=== PATIENT | male | born 1945 | race Caucasian/White ===

== ENCOUNTER 2019-08-16 16:32 | Emergency (ER) | payer MEDICARE, OTHER ==
[2019-08-18 15:28] LABS: SARS-CoV-2 MS2 Positive; SARS-CoV-2 N Gene Positive; SARS-CoV-2 S Gene Positive; SARS-CoV-2 orf1ab Positive
== END 2019-08-16 17:10 | disposition home or self-care (01) ==
LOC: NAV ERS 16:32
DX: U07.1 COVID-19 (principal); E11.9 Type 2 diabetes mellitus without complications; J45.909 Unspecified asthma, uncomplicated; I48.91 Unspecified atrial fibrillation; F43.10 Post-traumatic stress disorder, unspecified; Z79.01 Long term (current) use of anticoagulants; Z79.899 Other long term (current) drug therapy; Z79.51 Long term (current) use of inhaled steroids
CPT/HCPCS: 87635; 99283; U0003